=== PATIENT | female | born 1950 | race American Indian/Alaskan Native ===

== ENCOUNTER 2017-09-21 12:40 | Emergency (ER) | payer MEDICARE ==
[2017-09-21 13:52] LABS: Hematocrit 36.3 % (30.3-42.9); Hemoglobin 11.8 gm/dl (10.1-14.3); Mean Corpuscular HGB Conc 33 % (30-34); Mean Corpuscular Hemoglobin 29 pg (28-32); Mean Corpuscular Volume 88 fl (79-97); Platelet Count 405 K/mm3 (140-440); Red Blood Count 4.14 M/mm3 (3.65-5.03); Red Cell Distribution Width 16.5 % (13.2-15.2)
[2017-09-21 14:02] LABS: INR 0.94 (0.87-1.13)
[2017-09-21 14:03] LABS: Partial Thromboplastin Time 34.8 Sec. (24.2-36.6)
[2017-09-21 14:06] LABS: BUN/Creatinine Ratio 25; Blood Urea Nitrogen 10 mg/dL (7-17); Calcium 9.1 mg/dL (8.4-10.2); Hemolysis Index 13
[2017-09-21 19:22] VITALS: BP 198/106
[2017-09-21] MEDS ORDERED: TORADOL IM ONE (19:25)
[2017-09-21 20:25] LABS: Bilirubin,Urine NEG (Negative); Blood,Urine NEG (Negative); Color,Urine Yellow (Yellow); Mucus,Urine FEW /HPF; Nitrite,Urine NEG (Negative); Protein,Urine <15 mg/dL mg/dL (Negative); Urobilinogen,Urine < 2.0 mg/dL (<2.0)
--- NOTE | 2017-09-22 09:37 | XRay Report ---
FINAL REPORT PROCEDURE: XR SPINE LUMBOSACRAL 2-3V TECHNIQUE: AP, lateral, and cone-down lateral views HISTORY: severe back pain COMPARISON: None FINDINGS: Subtle anterior listhesis of L2 on L3 is present as well as mild levoscoliosis. There is no evident fracture, blastic or lytic lesion. Mild multilevel degenerative disc disease with worse moderate degenerative disc disease at L2/L3 is seen. [id number] multilevel facet DJD is present. IMPRESSION: Subtle anterior listhesis of L2 on L3 as well as lumbar levoscoliosis. Degenerative changes of the spine without evident fracture. Given symptomatology consider follow-up with MRI.
== END 2017-09-21 21:30 | disposition left against medical advice (07) ==
LOC: EDBD → ED 12:40
DX: Z53.21 Procedure and treatment not carried out due to patient leaving prior to being seen by health care provider (principal)
CPT/HCPCS: 36415; 72100; 80048; 81001; 85027; 85610; 85730; 93971; J1885

== ENCOUNTER 2018-10-28 10:38 | Outpatient (CLI) | payer MEDICARE ==
--- NOTE | 2018-10-28 14:51 | Vascular Lab Report ---
FINAL REPORT EXAM: VL VENOUS DUPLEX LE BILAT HISTORY: INFLAMMATION AND SWELLING TECHNIQUE: Grayscale and color and spectral Doppler ultrasound imaging of the bilateral lower extrem ities was performed for the purposes of assessing for deep venous thrombosis. PRIORS: None. FINDINGS: No evidence of deep venous thrombosis is seen within the common femoral through the posterior tibial and peroneal veins. Normal compression and color flow is seen throughout the venous system of the dara ateral lower extremities. IMPRESSION: Negative for bilateral lower extremity deep venous thrombosis.
== END 2018-10-28 10:39 | disposition home or self-care (01) ==
LOC: VAS 10:38
PROVIDERS: ATTEND Podiatrist Foot & Ankle Surgery
DX: M79.662 Pain in left lower leg (principal); M79.89 Other specified soft tissue disorders; I11.0 Hypertensive heart disease with heart failure; I50.9 Heart failure, unspecified; M19.90 Unspecified osteoarthritis, unspecified site; Z90.710 Acquired absence of both cervix and uterus; Z90.49 Acquired absence of other specified parts of digestive tract
CPT/HCPCS: 93970

== ENCOUNTER 2020-11-22 14:49 | Outpatient (CLI) | payer MEDICARE ==
--- NOTE | 2020-11-22 17:26 | Mammography Report ---
DEXA BONE DENSITY SCAN INDICATION / CLINICAL INFORMATION: OSTEOPENIA OF MULTIPLE SITES M85.89. 70 years Female COMPARISON: None available. LUMBAR SPINE, L2-L4: - Bone mineral density (BMD) = 0.957 g/cm2. - T-score = -2.1 - Z-score = 0.2 Change (%) since most recent prior (if available): None available. RIGHT HIP: Not evaluated. LEFT HIP, NECK : - Bone mineral density (BMD) = 0.700 g/cm2. - T-score = -1.8 - Z-score = -0.4 Change (%) since most recent prior (if available): None available. IMPRESSION: 1. WHO Classification: Osteopenia. Fracture Risk: Increased. Note: 10-Year Fracture Risk (FRAX) not reported. This DEXA unit lacks FRAX functionality. BMD Reporting Guidelines (ISCD, 2015) BMD Reporting in Postmenopausal Women and in Men Age 50 and Older - T-scores are preferred. - The WHO densitometric classification is applicable. BMD Reporting in Females Prior to Menopause and in Males Younger Than Age 50 - Z-scores, not T-scores, are preferred. This is particularly important in children. - A Z-score of -2.0 or lower is defined as below the expected range for age, and a Z-score above -2.0 is within the expected range for age. - Osteoporosis cannot be diagnosed in men under age 50 on the basis of BMD alone. - The WHO diagnostic criteria may be applied to women in the menopausal transition. http://www.iscd.org/official-positions/8266-pxfz-msnlduvy-positions-adult/ Signer Name: Sp Esquivel MD Signed: 11/22/2020 5:22 PM Workstation Name: [id number]
== END 2020-11-22 14:50 | disposition home or self-care (01) ==
LOC: MAMMO 14:49
PROVIDERS: ATTEND Family Medicine
DX: Z12.31 Encounter for screening mammogram for malignant neoplasm of breast (principal); M85.89 Other specified disorders of bone density and structure, multiple sites
CPT/HCPCS: 77067; 77080

== ENCOUNTER 2022-01-27 10:28 | Outpatient (CLI) | payer MEDICARE | END 2022-01-27 10:29 | disposition home or self-care (01) | LOC: SPVWC 10:28 | PROVIDERS: ATTEND Family Medicine | DX: Z12.31 Encounter for screening mammogram for malignant neoplasm of breast (principal) | CPT/HCPCS: 77067 ==